=== PATIENT | female | born 1975 | race Caucasian/White ===

== ENCOUNTER → 2016-08-27 | Outpatient (CLI) | payer MEDICAID ==
[~2016-08-27] MED LIST: LEVOTHYROXIN0.025 MG PO; RANITIDINE HCL150 MG PO
== END ==
LOC: LAB 14:18
DX: E03.9 Hypothyroidism, unspecified (principal)

== ENCOUNTER 2016-09-02 12:29 | Emergency (ER) | payer MEDICAID | END 2016-09-02 14:47 | disposition home or self-care (01) | LOC: ED 12:29 | DX: E16.2 Hypoglycemia, unspecified (principal); R11.0 Nausea ==

== ENCOUNTER → 2017-09-08 | Outpatient (CLI) | payer MEDICAID ==
[2016-09-02 14:42] VITALS: BP 135/78
== END ==
LOC: LAB 14:20
DX: R52 Pain, unspecified (principal)

== ENCOUNTER → 2018-01-03 | Outpatient (CLI) | payer MEDICAID ==
[2016-09-02 14:42] VITALS: BP 135/78
[~2018-01-03] MED LIST changes: +OTC DIURETIC; +PANTOPRAZOLE SO40 MG PO; +SYNTHROID112 MCG PO; +TIROSINT112 MC1 PO
[2018-01-03 22:43] LABS: T3 FREE 2.1 pg/mL (1.7-3.7)
== END ==
LOC: LAB 14:15
PROVIDERS: Family Medicine
DX: E03.9 Hypothyroidism, unspecified (principal); K22.70 Barrett's esophagus without dysplasia; K74.60 Unspecified cirrhosis of liver

== ENCOUNTER → 2018-01-05 | Outpatient (CLI) | payer MEDICAID ==
[~2018-01-05] VITALS: Ht 154.9 cm; Wt 84.5 kg
[2018-01-05 10:15] VITALS: BP 138/73
--- NOTE | 2018-01-05 21:40 | NUR ---
HOLTER MONITOR PLACED, INSTRUCTIONS GIVEN, PT VERBALIZES UNDERSTANDING. DC'D TO HOME WITH HOLTER MONITOR.
== END ==
LOC: AMSURD 10:00
DX: R07.9 Chest pain, unspecified (principal); E03.9 Hypothyroidism, unspecified; K21.9 Gastro-esophageal reflux disease without esophagitis

== ENCOUNTER → 2018-02-24 | Outpatient (CLI) | payer OTHER ==
[2018-01-05 10:15] VITALS: BP 138/73
== END ==
LOC: RAD 14:11
DX: R76.11 Nonspecific reaction to tuberculin skin test without active tuberculosis (principal)

== ENCOUNTER 2019-03-07 15:13 | Emergency (ER) | payer OTHER ==
[~2019-03-07] VITALS: Ht 154.9 cm; Wt 83.2 kg
[~2019-03-07 15:13] MED LIST changes: +PAROXETINE HYDR10 MG PO
[2019-03-07 15:51] LABS: BASO # 0.1 (0.02-0.10); EOS # 0.2 (0.04-0.40); EOS % 2.1 % (1.0-5.0); HEMATOCRIT 50.2 % (37.0-47.0); HEMOGLOBIN 17.1 g/dL (12.5-16.0); LYMPH# 1.9 (1.50-4.00); MEAN CELL VOLUME 96 fl (78-100); MEAN CORPUSCULAR HEMOGLOBIN 33 pg (27-31); MEAN CORPUSCULAR HGB CONC 34 g/dL (33-37); MEAN PLATELET VOLUME 9.8 fl (7.4-10.4); MONO # 0.8 (0.20-0.80); NEU # 5.9 (1.40-6.50); PLATELET COUNT 270 K/mm3 (130-400); RED BLOOD COUNT 5.21 M/mm3 (4.10-5.30); RED CELL DISTRIBUTION WIDTH 13.9 % (11.5-14.5); WHITE BLOOD COUNT 8.9 K/mm3 (4.8-10.8)
[2019-03-07 16:01] LABS: ALBUMIN 4.8 g/dL (3.5-5.0)
[2019-03-07 16:02] LABS: POTASSIUM 3.1 mmol/L (3.5-5.1); SODIUM 139 mmol/L (136-145)
[2019-03-07 16:03] LABS: CALCIUM 10.2 mg/dL (8.3-10.5)
[2019-03-07 16:04] LABS: GLUCOSE 103 mg/dL (65-105); TOTAL PROTEIN 8.2 g/dL (6.4-8.3)
[2019-03-07 16:05] LABS: CARBON DIOXIDE 26 mmol/L (22-29)
[2019-03-07 16:06] LABS: TOTAL BILIRUBIN 1.3 mg/dL (0.2-1.2)
[2019-03-07 16:09] LABS: AST-SGOT 68 U/L (5-34)
[2019-03-07 16:11] LABS: ALT/SGPT 70 U/L (0-55); LIPASE 35 U/L (8-78)
[2019-03-07 16:20] LABS: TROPONIN-I < 0.03 ng/mL (<0.030)
[2019-03-07 17:47] LABS: PH-URINE 5.5 (5.0 - 8.0); URINE APPEARANCE CLEAR; URINE COLOR YELLOW; URINE GLUCOSE NEGATIVE (NEGATIVE); URINE PROTEIN(semi-quant) 1+ mg/dL (NEGATIVE)
[2019-03-07 17:48] LABS: URINE BILIRUBIN NEGATIVE (NEGATIVE); URINE BLOOD 50 ery/uL (NEGATIVE); URINE KETONE 1+ (NEGATIVE); URINE LEUKOCYTE ESTERASE TRACE (NEGATIVE); URINE NITRATE NEGATIVE (NEGATIVE); URINE UROBILINOGEN NORMAL (NORMAL); URINE WBC 0-1 /hpf (0-3)
[2019-03-07] MEDS ORDERED: ONDANSETRON ODT8 MG PO (19:52)
[2019-03-07] MEDS ORDERED: K-TAB20 MEQ PO (19:54)
[2019-03-07] MEDS ORDERED: PROTONIX20 M1 PO (20:25)
[2019-03-07] MEDS ORDERED: PERCOCET 325 MG1 TA2 PO (20:25)
[2019-03-07 20:42] VITALS: BP 140/84
== END 2019-03-07 20:42 | disposition home or self-care (01) ==
LOC: ED 15:13
PROVIDERS: Nurse Practitioner Family
DX: E87.6 Hypokalemia (principal); E86.0 Dehydration; F10.10 Alcohol abuse, uncomplicated; R10.13 Epigastric pain; E03.9 Hypothyroidism, unspecified; F41.9 Anxiety disorder, unspecified; K21.9 Gastro-esophageal reflux disease without esophagitis; K58.9 Irritable bowel syndrome, unspecified; F17.210 Nicotine dependence, cigarettes, uncomplicated; G47.00 Insomnia, unspecified; K74.60 Unspecified cirrhosis of liver; Z90.710 Acquired absence of both cervix and uterus
CPT/HCPCS: C9113; J3490; J7030; Q9967

== ENCOUNTER → 2019-03-09 | Outpatient (CLI) | payer OTHER ==
[2019-03-07 20:42] VITALS: BP 140/84
[~2019-03-09] MED LIST changes: +K-TAB20 MEQ PO; +ONDANSETRON ODT8 MG PO; +PERCOCET 325 MG1 TA2 PO; +PROTONIX20 M1 PO
== END ==
LOC: RAD 10:28
DX: R10.11 Right upper quadrant pain (principal); R10.13 Epigastric pain; R94.5 Abnormal results of liver function studies

== ENCOUNTER → 2019-03-10 | Outpatient (CLI) | payer OTHER ==
[2019-03-07 20:42] VITALS: BP 140/84
[2019-03-10 14:45] LABS: POTASSIUM 3.7 mmol/L (3.5-5.1)
[2019-03-10 14:46] LABS: CALCIUM 9.4 mg/dL (8.3-10.5)
== END ==
LOC: LAB 14:30
PROVIDERS: Physician Assistant
DX: E87.6 Hypokalemia (principal); R10.9 Unspecified abdominal pain; R11.0 Nausea

== ENCOUNTER 2020-01-05 12:38 | Emergency (ER) | payer OTHER ==
[~2020-01-05] VITALS: Ht 154.9 cm; Wt 85.9 kg
[2020-01-05] MEDS ORDERED: XANAX0.5 M1 PO (12:54)
[2020-01-05] MEDS ORDERED: LEVO-T150 MCG PO (12:54)
[2020-01-05] MEDS ORDERED: PANTOPRAZOLE SO40 MG PO (12:55)
[2020-01-05 13:11] LABS: BASO # 0.1 (0.02-0.10); EOS # 0.3 (0.04-0.40); EOS % 4.4 % (1.0-5.0); HEMATOCRIT 44.9 % (37.0-47.0); HEMOGLOBIN 15.1 g/dL (12.5-16.0); LYMPH# 1.6 (1.50-4.00); MEAN CELL VOLUME 101 fl (78-100); MEAN CORPUSCULAR HEMOGLOBIN 34 pg (27-31); MEAN CORPUSCULAR HGB CONC 34 g/dL (33-37); MEAN PLATELET VOLUME 10.6 fl (7.4-10.4); MONO # 0.4 (0.20-0.80); NEU # 3.8 (1.40-6.50); PLATELET COUNT 169 K/mm3 (130-400); RED BLOOD COUNT 4.45 M/mm3 (4.10-5.30); RED CELL DISTRIBUTION WIDTH 12.7 % (11.5-14.5); WHITE BLOOD COUNT 6.1 K/mm3 (4.8-10.8)
[2020-01-05 13:22] LABS: ALBUMIN 4.3 g/dL (3.5-5.0); POTASSIUM 3.6 mmol/L (3.5-5.1); SODIUM 144 mmol/L (136-145)
[2020-01-05 13:23] LABS: CALCIUM 9.4 mg/dL (8.3-10.5)
[2020-01-05 13:24] LABS: GLUCOSE 104 mg/dL (65-105)
[2020-01-05 13:25] LABS: CARBON DIOXIDE 24 mmol/L (22-29)
[2020-01-05 13:26] LABS: TOTAL BILIRUBIN 0.5 mg/dL (0.2-1.2)
[2020-01-05 13:30] LABS: AST-SGOT 52 U/L (5-34)
[2020-01-05 13:31] LABS: ALT/SGPT 66 U/L (0-55)
[2020-01-05] MEDS ORDERED: ATROVENT HFA IH (13:45)
[2020-01-05 14:09] LABS: TROPONIN-I < 0.03 ng/mL (<0.030)
[2020-01-05 15:47] VITALS: BP 142/73
== END 2020-01-05 15:45 | disposition home or self-care (01) ==
LOC: ED 12:38
PROVIDERS: Nurse Practitioner
DX: R07.89 Other chest pain (principal); H53.8 Other visual disturbances; F17.210 Nicotine dependence, cigarettes, uncomplicated; Z90.710 Acquired absence of both cervix and uterus

== ENCOUNTER → 2020-06-05 | Outpatient (CLI) | payer OTHER ==
[~2020-06-05] MED LIST changes: +ATROVENT HFA IH; +LEVO-T150 MCG PO; +XANAX0.5 M1 PO
[2020-06-05 14:31] LABS: BASO # 0.1 (0.02-0.10); EOS # 0.3 (0.04-0.40); EOS % 3.6 % (1.0-5.0); HEMATOCRIT 47.4 % (37.0-47.0); HEMOGLOBIN 15.6 g/dL (12.5-16.0); LYMPH# 1.8 (1.50-4.00); MEAN CELL VOLUME 98 fl (78-100); MEAN CORPUSCULAR HEMOGLOBIN 32 pg (27-31); MEAN CORPUSCULAR HGB CONC 33 g/dL (33-37); MEAN PLATELET VOLUME 9.7 fl (7.4-10.4); MONO # 0.6 (0.20-0.80); NEU # 5.5 (1.40-6.50); PLATELET COUNT 249 K/mm3 (130-400); RED BLOOD COUNT 4.84 M/mm3 (4.10-5.30); RED CELL DISTRIBUTION WIDTH 12.8 % (11.5-14.5); WHITE BLOOD COUNT 8.2 K/mm3 (4.8-10.8)
== END ==
LOC: LAB 14:22
PROVIDERS: Physician Assistant
DX: E03.9 Hypothyroidism, unspecified (principal); I10 Essential (primary) hypertension; Z83.2 Family history of diseases of the blood and blood-forming organs and certain disorders involving the immune mechanism

== ENCOUNTER → 2021-02-03 | Outpatient (CLI) | payer OTHER ==
[2021-02-03 15:30] LABS: BASO # 0.04 (0.02-0.10); EOS # 0.28 (0.04-0.40); HEMATOCRIT 44.6 % (37.0-47.0); LYMPH# 1.69 (1.50-4.00); MEAN CELL VOLUME 99 fl (78-100); MEAN CORPUSCULAR HEMOGLOBIN 33 pg (27-31); MEAN CORPUSCULAR HGB CONC 34 g/dL (33-37); MEAN PLATELET VOLUME 9.8 fl (7.4-10.4); MONO # 0.55 (0.20-0.80); NEU # 4.39 (1.40-6.50); PLATELET COUNT 215 K/mm3 (130-400); RED BLOOD COUNT 4.53 M/mm3 (4.10-5.30); RED CELL DISTRIBUTION WIDTH 12.2 % (11.5-14.5)
[2021-02-03 15:41] LABS: ALBUMIN 3.9 g/dL (3.5-5.0); POTASSIUM 3.3 mmol/L (3.5-5.1)
[2021-02-03 15:43] LABS: TOTAL PROTEIN 6.8 g/dL (6.4-8.3)
[2021-02-03 15:45] LABS: TOTAL BILIRUBIN 0.7 mg/dL (0.2-1.2)
== END ==
LOC: LAB 15:15
PROVIDERS: Physician Assistant
DX: I10 Essential (primary) hypertension (principal); E03.9 Hypothyroidism, unspecified; K90.9 Intestinal malabsorption, unspecified

== ENCOUNTER → 2021-02-05 | Outpatient (CLI) | payer OTHER ==
[2021-02-05 12:38] LABS: POTASSIUM 3.5 mmol/L (3.5-5.1)
[2021-02-05 12:39] LABS: CALCIUM 9.2 mg/dL (8.3-10.5)
== END ==
LOC: LAB 10:44
PROVIDERS: Physician Assistant
DX: Z12.39 Encounter for other screening for malignant neoplasm of breast (principal); E87.6 Hypokalemia; K90.9 Intestinal malabsorption, unspecified; E78.5 Hyperlipidemia, unspecified; R73.9 Hyperglycemia, unspecified

== ENCOUNTER → 2021-02-07 | Outpatient (CLI) | payer OTHER | LOC: RAD 08:45 | DX: R10.11 Right upper quadrant pain (principal) ==

== ENCOUNTER → 2021-02-11 | Outpatient (CLI) | payer OTHER | LOC: MAMMO 08:30 | DX: Z12.31 Encounter for screening mammogram for malignant neoplasm of breast (principal) ==

== ENCOUNTER → 2021-11-11 | Outpatient (CLI) | payer OTHER ==
[2021-11-11 12:41] LABS: BASO # 0.05 K/mm3 (0.02-0.10); EOS # 0.22 K/mm3 (0.04-0.40); EOS % 3.1 % (1.0-5.0); HEMATOCRIT 43.2 % (37.0-47.0); HEMOGLOBIN 14.7 g/dL (12.5-16.0); LYMPH# 1.72 K/mm3 (1.50-4.00); MEAN CELL VOLUME 103 fl (78-100); MEAN CORPUSCULAR HEMOGLOBIN 35 pg (27-31); MEAN CORPUSCULAR HGB CONC 34 g/dL (33-37); MEAN PLATELET VOLUME 9.1 fl (7.4-10.4); MONO # 0.46 K/mm3 (0.20-0.80); NEU # 4.63 K/mm3 (1.40-6.50); PLATELET COUNT 248 K/mm3 (130-400); RED BLOOD COUNT 4.19 M/mm3 (4.10-5.30); RED CELL DISTRIBUTION WIDTH 14.3 % (11.5-14.5); WHITE BLOOD COUNT 7.1 K/mm3 (4.8-10.8)
[2021-11-11 12:57] LABS: ALBUMIN 3.9 g/dL (3.5-5.0); POTASSIUM 3.2 mmol/L (3.5-5.1)
[2021-11-11 12:59] LABS: CALCIUM 9.5 mg/dL (8.3-10.5)
[2021-11-11 13:00] LABS: TOTAL PROTEIN 6.6 g/dL (6.4-8.3)
[2021-11-11 13:02] LABS: TOTAL BILIRUBIN 0.8 mg/dL (0.2-1.2)
== END ==
LOC: LAB 12:20
PROVIDERS: Physician Assistant
DX: Z00.00 Encounter for general adult medical examination without abnormal findings (principal); Z13.1 Encounter for screening for diabetes mellitus; I10 Essential (primary) hypertension; K21.9 Gastro-esophageal reflux disease without esophagitis; E03.9 Hypothyroidism, unspecified; E78.5 Hyperlipidemia, unspecified; K90.9 Intestinal malabsorption, unspecified; Z83.2 Family history of diseases of the blood and blood-forming organs and certain disorders involving the immune mechanism

== ENCOUNTER → 2022-01-19 | Outpatient (CLI) | payer OTHER | LOC: MAMMO 07:35 | DX: N64.4 Mastodynia (principal) ==

== ENCOUNTER → 2022-03-05 | Outpatient (CLI) | payer OTHER | LOC: RAD 11:37 | DX: S92.912A Unspecified fracture of left toe(s), initial encounter for closed fracture (principal); X58.XXXA Exposure to other specified factors, initial encounter ==

== ENCOUNTER → 2022-07-23 | Outpatient (CLI) | payer BC | LOC: LAB 11:31 | DX: F43.0 Acute stress reaction (principal); I10 Essential (primary) hypertension; E78.5 Hyperlipidemia, unspecified; E03.9 Hypothyroidism, unspecified; R07.9 Chest pain, unspecified; R73.9 Hyperglycemia, unspecified; Z72.0 Tobacco use ==

== ENCOUNTER → 2024-05-01 | Outpatient (CLI) | payer BC ==
[~2024-05-01] MED LIST changes: +Iohexol 300 - 100 ML VIAL IV ONE
== END ==
LOC: RAD 08:53
DX: K76.0 Fatty (change of) liver, not elsewhere classified (principal)
CPT/HCPCS: Q9967